=== PATIENT | female | born 1970 | race Caucasian/White ===

== ENCOUNTER → 2020-02-18 12:57 | Outpatient (CLI) | payer OTHER, SELFPAY ==
--- NOTE | ~2020-02-18 | MM_ITS ---
EXAMINATION: MM screening [facility] BI w odilia HISTORY: Screening mammogram TECHNIQUE: Craniocaudal and mediolateral oblique 3-D tomosynthesis images were obtained and synthetic 2-D images were generated. CAD analysis was submitted and interpreted. COMPARISON: 12/04/2018, 11/13/2017, 11/17/2016, 11/10/2016 BREAST PARENCHYMAL COMPOSITION: The breasts are heterogeneously dense, which may obscure small masses . FINDINGS: There is no evidence of suspicious mass, calcification, or architectural distortion to sugg est malignancy in either breast. There has been no suspicious interval change. IMPRESSION: 1. No mammographic evidence of malignancy. 2. Recommend routine screening mammography in one year. BI-RADS Category 1: Negative Reviewed, dictated and finalized at location A. [employer]
== END ==
PROVIDERS: PCP Family Medicine; Visit Provider Family Medicine
DX: Z12.31 Encounter for screening mammogram for malignant neoplasm of breast (principal)
CPT/HCPCS: 77063; 77067

== ENCOUNTER → 2021-04-11 14:01 | Outpatient (CLI) | payer OTHER, SELFPAY ==
--- NOTE | ~2021-04-11 | MM_ITS ---
EXAMINATION: MM screening [facility] BI w odilia HISTORY: Screening TECHNIQUE: Craniocaudal and mediolateral oblique 3-D tomosynthesis images were obtained and synthetic 2-D images were generated. CAD analysis was submitted and interpreted. COMPARISON: Comparison to multiple prior studies sequentially, with oldest reviewed study dated 10/13. BREAST PARENCHYMAL COMPOSITION: The breasts are heterogenously dense, which may obscure small masses FINDINGS: There are developing nodular asymmetries in the outer aspect of the right breast on CC view . The left breast is stable without evidence for malignancy. IMPRESSION: 1. Developing nodular asymmetries of the right breast. 2. Additional spot compression and mediolateral views with possible follow-up breast ultrasound recom mended. BI-RADS Category 0: Incomplete: Needs additional imaging evaluation. Reviewed, dictated and finalized at location A. E IN THEATER ATTENDANT IMPRESSION: 1. Developing nodular asymmetries of the right breast. 2. Additional spot compression and mediolateral views with possible follow-up b reast ultrasound recommended. BI-RADS Category 0: Incomplete: Needs additional imaging evaluation.
== END ==
PROVIDERS: PCP Family Medicine; Visit Provider Family Medicine
DX: Z12.31 Encounter for screening mammogram for malignant neoplasm of breast (principal); R92.8 Other abnormal and inconclusive findings on diagnostic imaging of breast
CPT/HCPCS: 77063; 77067

== ENCOUNTER 2021-04-27 12:55 | Outpatient (CLI) | payer OTHER, SELFPAY ==
--- NOTE | ~2021-04-27 | MMUS_ITS ---
EXAMINATION: MM diagnostic [facility] RT w odilia, US breast RT limited HISTORY: Developing nodular asymmetries of right breast reported on April 11, 2021 screening mammog gadiel TECHNIQUE: ML full-field and spot ML, MLO and CC 3-D tomosynthesis images of right breast were perfor med and synthetic 2-D images were generated. CAD analysis was submitted and interpreted. High resolut ion upper outer and lower-outer quadrant right breast ultrasound was performed. COMPARISON: April 11, 2021, February 18, 2020, December 04, 2018 bilateral screening mammogram examin ations FINDINGS: MAMMOGRAPHIC FINDINGS: No suspicious mass, architectural distortion, malignant calcification, skin thickening or retraction or significant new or developing density is evident since 12/04/2018. ULTRASOUND: There is minimal focal shadowing without apparent discrete lesion at 8:00. There is a right axillary 8.3 x 20.7 x 12.5 mm circumscribed soft tissue structure with central fatty tissue, consistent with lymph node. The cortex appears uniform density and thickness. No suspicious mass or shadowing is detected otherwise. IMPRESSION: 1. Probably benign minimal focal shadowing without discrete mass at 8:00 and probable benign right ax illary lymph node 2. 6 month diagnostic right mammogram and right breast and right axillary ultrasound follow-up are re commended BI-RADS category 3, probably benign findings. Reviewed, dictated and finalized at location A. SPACE PROJECT MANAGER IMPRESSION: 1. Probably benign minimal focal shadowing without discrete mass at 8:00 and pr obable benign right axillary lymph node 2. 6 month diagnostic right mammogram and right breast and right axillary ultra sound follow-up are recommended BI-RADS category 3, probably benign findings.
== END 2021-04-27 12:56 | disposition home or self-care (01) ==
LOC: ANHIMG 12:57
PROVIDERS: PCP Family Medicine; Visit Provider Family Medicine
DX: R92.8 Other abnormal and inconclusive findings on diagnostic imaging of breast (principal)
CPT/HCPCS: 76642; 77061; 77065; G0279

== ENCOUNTER 2021-05-09 00:29 | Day surgery (SDC) | payer OTHER, SELFPAY ==
[2021-04-29 11:13] VITALS: BMI 42.3
--- NOTE | 2021-05-08 12:39 | WPDANESEPP ---
Anes - Eval Pre Procedure Procedure: Operation Date: 05/09/21 10:30 Proposed Procedures p Screening Colonoscopy - Addi Ozuna MD Date/Time: 05/08/21 12:39 Pre Op Diagnosis: neoplasm screening Patient Data Age: 50 Gender: F Height: 1.61 m Weight: 110 kg Allergies Allergy/AdvReac Type Severity Reaction Status Date / Time bee venom protein (honey bee) Allergy Severe Swelling Verified 04/29/21 11:18 [bees] of Lip/Tongue/Throat latex Allergy Severe Swelling Verified 04/29/21 11:16 of Lip/Tongue/Throat raspberry Allergy Severe throat Verified 04/29/21 11:16 close adhesive tape Allergy Intermediate Hives Verified 04/29/21 11:19 fluoxetine Allergy Mild rash Verified 04/29/21 11:16 furosemide Allergy Mild rash Verified 04/29/21 11:16 Home Medications Medication Instructions Recorded Confirmed Type aspirin 81 mg chewable tablet 81 mg PO DAILY 12/30/20 04/29/21 History cetirizine 10 mg tablet 10 mg PO DAILY 12/30/20 04/29/21 History cyclobenzaprine 5 mg tablet 5 mg PO TID PRN #30 tablet 12/30/20 04/29/21 Rx hydroxyzine HCl 25 mg tablet 25 mg PO TID PRN #60 tablet 12/30/20 04/29/21 Rx triamterene 37.5 1 tablet PO QAM #90 tablet 01/03/21 04/29/21 Rx mg-hydrochlorothiazide 25 mg tablet albuterol sulfate 90 mcg/actuation See Rx Instructions .ROUTE 04/01/21 04/29/21 Rx aerosol inhaler .COMPLEX #8.5 g sod picosulf 10 mg-magnes 3.5 160 ml PO QPM #320 ml 04/13/21 Rx gram-citric 12 gram/160 mL oral solution cholecalciferol (vitamin D3) 125 mcg PO DAILY 04/29/21 04/29/21 History [Vitamin D3] cyanocobalamin (vitamin B-12) 2,500 mcg SUBLINGUAL DAILY 04/29/21 04/29/21 History [Vitamin B-12] rosuvastatin 5 mg PO DAILY 04/29/21 04/29/21 History topiramate 25 mg PO BID 04/29/21 04/29/21 History zinc gluconate [Zinc-50] 50 mg PO DAILY 04/29/21 04/29/21 History naproxen 500 mg tablet 500 mg PO BID PRN #180 tablet 05/04/21 Rx : patient denies HCG: negative Patient hx anesthesia problems: none Family hx anesthesia problems: none Results Review: All pre-operative results and documents have been reviewed as part of the pre-operative evaluation. [facility] Past Medical History Medical History Benign essential HTN BMI 39.0-39.9,adult Migraines Obesity (BMI 30-39.9) Family History Family History Father Family history of chronic obstructive pulmonary disease Family history of diabetes mellitus in first degree relative Family history of heart disease in male family member before age 55 Heart disease RAFY (obstructive sleep apnea) Mother Family history of chronic obstructive pulmonary disease Family history of diabetes mellitus in first degree relative Family history of dementia Family history of heart disease in male family member before age 55 Heart disease Hypertension Cerebrovascular accident Acute myocardial infarction Sibling Carcinoma of colon age 30s Diabetes mellitus Social History Social History Social History: Smoking status: Never smoker Second hand tobacco smoke exposure: No Alcohol intake: current Substance use: never Substance use type: does not use Gender identity (if verbalized by the patient): Female Sexual Orientation (if Verbalized by the Patient): Straight or Heterosexual Spiritual care concerns: No Exam Day of Procedure 05/08/21 12:39
[2021-05-09 09:25] VITALS: BP 178/90; PULSE 63; RESP 20; TEMP 36.9; O2SAT 98; BMI 39.4
[2021-05-09] MEDS: LACTATED RINGERS 1,000 ML 150 ML IV CONT (09:53)
--- NOTE | 2021-05-09 10:02 | WPDANESEFPP ---
Anes - Eval Final PreProcedure Day of Procedure 05/09/21 10:02 Patient weight: obese Heart: regular rate and rhythm Lungs: clear to auscultation and normal air movement Airway: Mallampati scale class II Neurological: alert and oriented Last oral intake: >/= 8 hours ASA classification: II Emergent: no Anesthetic plan: proceed Anesthesia type and monitoring: general GIVS and standard monitoring Results Review: All pre-operative results and documents have been reviewed as part of the pre-operative evaluation. Informed Consent: The patient's anesthetic plan and its attendant risks and benefits were discussed with the patient/family/POA. Questions were solicited and answers provided to the satisfaction of the patient/family/POA.
--- NOTE | 2021-05-09 10:25 | PM.HPGS ---
History of Present Illness History of Present Illness Consent: Risks, benefits, and alternatives have been discussed and questions answered. Patient agrees to proceed with procedure. Chief complaint: neoplasm screening Narrative: Radha Aquino is a 50 year old female with last colonoscopy ~ 12 years ago, brother had colon cancer at 30's Review of Systems Constitutional: Constitutional: Denies headache(s) and Denies weakness Eyes: Eyes: Denies blurry vision ENT: Reports Normal hearing present, Denies headache(s) and Denies neck pain Cardiovascular: Cardiovascular: Denies chest pain and Denies dyspnea Respiratory: Respiratory: Denies dyspnea Gastrointestinal: Gastrointestinal: Reports no additional gastrointestinal complaints Genitourinary: Genitourinary: Denies dysuria Musculoskeletal: Musculoskeletal: Denies neck pain Integumentary/Breasts: Skin/Breast: Denies dry skin Neurologic: Reports Normal hearing present, Denies headache(s) and Denies weakness Psychiatric: Psychiatric: Denies anxiety Endocrine: Endocrine: Denies change in body appearance Hematologic/Lymphatic: Hematologic/Lymphatic: Denies easy bleeding Allergic/Immunologic: Allergic/Immunologic: Denies urticaria PMFSH Past Medical History Medical History (Updated 05/09/21 @ 10:25 by Addi Ozuna MD) Benign essential HTN BMI 39.0-39.9,adult Family history of colon cancer Migraines Obesity (BMI 30-39.9) Family History Family History Father Family history of chronic obstructive pulmonary disease Family history of diabetes mellitus in first degree relative Family history of heart disease in male family member before age 55 Heart disease RAFY (obstructive sleep apnea) Mother Family history of chronic obstructive pulmonary disease Family history of diabetes mellitus in first degree relative Family history of dementia Family history of heart disease in male family member before age 55 Heart disease Hypertension Cerebrovascular accident Acute myocardial infarction Sibling Carcinoma of colon age 30s Diabetes mellitus Social History Social History Social History: Smoking status: Never smoker Second hand tobacco smoke exposure: No Alcohol intake: current Substance use: never Substance use type: does not use Living arrangements: with family Gender identity (if verbalized by the patient): Female Sexual Orientation (if Verbalized by the Patient): Straight or Heterosexual Spiritual care concerns: No Meds Home Medications and Allergies Home Medications Medication Instructions Recorded Confirmed Type aspirin 81 mg chewable tablet 81 mg PO DAILY 12/30/20 05/09/21 History cetirizine 10 mg tablet 10 mg PO DAILY 12/30/20 05/09/21 History cyclobenzaprine 5 mg tablet 5 mg PO TID PRN #30 tablet 12/30/20 05/09/21 Rx hydroxyzine HCl 25 mg tablet 25 mg PO TID PRN #60 tablet 12/30/20 05/09/21 Rx triamterene 37.5 1 tablet PO QAM #90 tablet 01/03/21 05/09/21 Rx mg-hydrochlorothiazide 25 mg tablet albuterol sulfate 90 mcg/actuation See Rx Instructions .ROUTE 04/01/21 05/09/21 Rx aerosol inhaler .COMPLEX #8.5 g sod picosulf 10 mg-magnes 3.5 160 ml PO QPM #320 ml 04/13/21 05/09/21 Rx gram-citric 12 gram/160 mL oral solution cholecalciferol (vitamin D3) 125 mcg PO DAILY 04/29/21 05/09/21 History [Vitamin D3] cyanocobalamin (vitamin B-12) 2,500 mcg SUBLINGUAL DAILY 04/29/21 05/09/21 History [Vitamin B-12] rosuvastatin 5 mg PO DAILY 04/29/21 05/09/21 History topiramate 25 mg PO BID 04/29/21 05/09/21 History zinc gluconate [Zinc-50] 50 mg PO DAILY 04/29/21 05/09/21 History naproxen 500 mg tablet 500 mg PO BID PRN #180 tablet 05/04/21 05/09/21 Rx Allergies Allergy/AdvReac Type Severity Reaction Status Date / Time bee venom protein (honey bee) Allergy Sever
[2021-05-09 10:44] VITALS: BP 112/70; PULSE 57; O2SAT 98
[2021-05-09 10:54] VITALS: BP 116/76; PULSE 60; O2SAT 98
[2021-05-09 11:02] VITALS: BP 120/75; PULSE 62; O2SAT 99
== END 2021-05-09 11:10 | disposition home or self-care (01) ==
PROVIDERS: PCP Family Medicine; Visit Provider Internal Medicine Gastroenterology
PROC: 0DJD8ZZ Inspection of Lower Intestinal Tract, Via Natural or Artificial Opening Endoscopic (ICD-10-PCS; CPT 45378; principal; 2021-05-09 10:30)
DX: Z12.11 Encounter for screening for malignant neoplasm of colon (principal); K62.1 Rectal polyp; Z80.0 Family history of malignant neoplasm of digestive organs; K57.30 Diverticulosis of large intestine without perforation or abscess without bleeding; K64.8 Other hemorrhoids; K64.4 Residual hemorrhoidal skin tags; I10 Essential (primary) hypertension; Z79.82 Long term (current) use of aspirin; Z79.51 Long term (current) use of inhaled steroids; E66.9 Obesity, unspecified; Z68.39 Body mass index [BMI] 39.0-39.9, adult
CPT/HCPCS: 45380; 88305; J2704; J7120

== ENCOUNTER 2021-12-12 13:52 | Outpatient (CLI) | payer OTHER, SELFPAY ==
--- NOTE | 2021-12-16 12:33 | WPDHOLTEREM ---
Holter/Event Monitor Holter/Event Monitor Date of procedure: 12/12/21 Holter/Event Procedure: 48 Hr Holter Monitor Indications: Bradycardia Conclusion: 1. 48 hour holter monitor on 12/12/21. 2. Underlying rhythm is sinus rhythm. HR range 40-104 bpm; average HR 62 bpm. 3. There are 9 premature supraventricular complexes. No supraventricular tachycardia. 4. There are 5 premature ventricular complexes. No ventricular tachycardia. 5. No sinoatrial or atrioventricular blocks. No significant pauses greater than 2 seconds. 6. Patient reports symptoms of headache, chest tightness, lightheadedness, pulse in head which demonstrate sinus rhythm, HR range 58-88 bpm.
== END 2021-12-12 13:53 | disposition home or self-care (01) ==
LOC: ANHCARD 13:54
PROVIDERS: PCP Family Medicine; Visit Provider Family Medicine
DX: U09.9 Post COVID-19 condition, unspecified (principal); R00.1 Bradycardia, unspecified
CPT/HCPCS: 93225; 93226

== ENCOUNTER 2022-10-20 08:41 | Outpatient (CLI) | payer OTHER, SELFPAY ==
--- NOTE | 2022-10-20 08:49 | ECHO_ITS ---
Patient Info Name: Radha Aquino Age: 52 years : 1970 Gender: Female Ht: 63 in Wt: 225 lbs BSA: 2.18 m2 HR: 56 bpm BP: 115 / 81 mmHg Technical Quality: Fair Exam Date: 10/20/2022 8:57 AM Exam Location: [facility] Patient Status: Outpatient Admit Date: 10/20/2022 Staff Ordering Physician: Matthew Larose DO Advertising Sales Agent: Jennifer Richey RDCS Attending Provider: Matthew Larose DO Referring Physician: Thuan ESTEVEZ; Exam Type: CA echo doppler color flow Study Info Indications R53.83 - Other fatigue Complete two-dimensional, color flow and Doppler transthoracic echocardiogram is performed. Summary 1. Complete two-dimensional, color flow and Doppler transthoracic echocardiogram is performed. 2. Left ventricular chamber dimension is normal. 3. Left ventricular systolic function is normal, estimated at 60-65%. 4. The left ventricular diastolic function is grade I diastolic dysfunction. 5. E/e' 8 is minimally elevated. Left Ventricle E/e' 8 is minimally elevated. Left ventricular chamber dimension is normal. Left ventricular systolic function is normal, estimated at 60-65%. The left ventricular diastolic function is grade I diastolic dysfunction. Right Ventricle Right ventricular chamber dimension is normal. Right ventricular systolic function is normal. Left Atria Left atrial chamber dimension is normal. Right Atria Right atrial chamber dimension is normal. Aortic Valve The aortic valve is trileaflet. There is no aortic valve stenosis. There is no aortic valve regurgitation. Pulmonic Valve There is no pulmonic regurgitation. Mitral Valve There is no mitral valve stenosis. There is no mitral valve regurgitation. Tricuspid Valve There is no tricuspid valve regurgitation. Pericardium/Pleural There is no pericardial effusion. Inferior Vena Cava Normal inferior vena cava with >50% collapse upon inspiration consistent with normal right atrial pressure, 5 mmHg. Aorta The aortic root size at the sinus of Valsalva is normal. Tricuspid Valve Name Value Normal Estimated PAP/RSVP RA Pressure 5 mmHg <=5 Report Signatures
== END 2022-10-20 08:42 | disposition home or self-care (01) ==
PROVIDERS: PCP Family Medicine; Visit Provider Internal Medicine Cardiovascular Disease
DX: R53.83 Other fatigue (principal)
CPT/HCPCS: 93306

== ENCOUNTER 2022-11-03 14:41 | Outpatient (CLI) | payer OTHER, SELFPAY ==
--- NOTE | ~2022-11-03 | XR_ITS ---
EXAMINATION: XR shoulder RT min 2V DATE: 11/03/2022 15:05 INDICATION: Right shoulder pain. TECHNIQUE: 4 views of right shoulder were obtained. COMPARISON: None. FINDINGS: Bone alignment is normal. No fracture. There is mild osteoarthritis of glenohumeral joint a nd acromioclavicular joint. IMPRESSION: 1. Mild polyarticular osteoarthritis. Reviewed, dictated and finalized at location E.
== END 2022-11-03 14:42 | disposition home or self-care (01) ==
LOC: ANHIMG 14:44
PROVIDERS: PCP Family Medicine; Visit Provider Physician Assistant
DX: M25.511 Pain in right shoulder (principal); M19.011 Primary osteoarthritis, right shoulder
CPT/HCPCS: 73030

== ENCOUNTER → 2022-11-13 14:59 | Outpatient (CLI) | payer OTHER, SELFPAY ==
--- NOTE | ~2022-11-13 | MR_ITS ---
MRI of the right shoulder Technique: Axial proton-density fat-sat images, coronal proton density fat-sat and T2 fat-sat images, and sagittal T1-weighted and T2 fat-sat images were acquired. Clinical History: Pain Findings: There is mild AC joint degenerative change, with minimal subacromial spur. Coracoclavicular , coracoacromial, and coracohumeral ligaments are intact. There is a 4 mm focal low-grade articular surface partial tear at the distal supraspinatus tendon ins ertion. There is mild supraspinatus and infraspinatus tendinosis. No infraspinatus tear identified. T here is mild to moderate subscapularis tendinosis, without evidence for tear. Tendon of the long head of the biceps is intact. No labral tear identified. Inferior glenohumeral ligament is intact. No significant degenerative change or effusion of the gleno humeral joint. There is minimal fluid in the subacromial/subdeltoid bursa. No muscle atrophy or edema identified. Impression: 4 mm focal low-grade articular surface partial tear of the distal supraspinatus tendon insertion. Mil d tendinosis, particularly supraspinatus and subscapularis tendons. Mild AC joint degenerative change. Minimal subacromial/subdeltoid bursitis. Reviewed, dictated and finalized at [facility]. Impression: 4 mm focal low-grade articular surface partial tear of the distal supraspinatus tendon insertion. Mild tendinosis, particularly supraspinatus and subscapulari s tendons. Mild AC joint degenerative change. Minimal subacromial/subdeltoid bursitis.
== END ==
PROVIDERS: PCP Family Medicine; Visit Provider Physician Assistant
DX: M19.011 Primary osteoarthritis, right shoulder (principal); M75.51 Bursitis of right shoulder; M24.111 Other articular cartilage disorders, right shoulder
CPT/HCPCS: 73221

== ENCOUNTER 2023-07-20 09:44 | Outpatient (CLI) | payer OTHER, SELFPAY ==
--- NOTE | ~2023-07-20 | US_ITS ---
EXAMINATION: US_VDOPREFBI_US DATE: 07/20/2023 09:40 INDICATION: Localized lower limb edema. TECHNIQUE: Grayscale ultrasound images without and with compression and Doppler ultrasound images of the bilateral lower extremity veins were obtained. COMPARISON: None. FINDINGS: The visualized portions of right common femoral vein, profunda (deep) femoral vein, femoral vein, pop liteal vein, peroneal veins, and posterior tibial veins are patent. Right greater saphenous vein hugo ures 5 mm in the upper thigh, 5 mm in the lower thigh, and 2 mm in the calf. Right greater saphenous vein demonstrates 1.5 seconds reflux in the lower thigh and 7.3 seconds reflux in the calf. Right sma ll saphenous vein measures 2 mm stone in the upper calf and 1 mm in the lower calf. No reflux in righ t small saphenous vein. The visualized portions of left common femoral vein, profunda femoral vein, femoral vein, popliteal v ein, peroneal veins, and posterior tibial veins are patent. Left greater saphenous vein measures 3 mm the upper thigh, 2 mm in the lower thigh, and a 2 mm in the calf without reflux. Left small saphenou s vein measures 2 mm in the upper calf and 2 mm in the lower calf without reflux IMPRESSION: 1. Reflux in right greater saphenous vein. Reviewed, dictated and finalized at location E.
[2023-07-20 10:45] LABS: Basophils Absolute Auto 0.1 K/mm3 (0.0-0.1); Eosinophils Absolute Auto 0.2 K/mm3 (0-0.3); Eosinophils Percent Auto 3.9 % (0-4.4); Hematocrit 45.5 % (37.0-47.0); Hemoglobin 14.7 g/dL (12.0-15.0); Immature Granulocyte Absolute 0.02 K/mm3 (0.00-0.031); Immature Granulocyte Percent A 0.3 % (0-0.5); Lymphocytes Absolute Auto 2.76 K/mm3 (0.9-3.2); Lymphocytes Percent Auto 44.9 % (18.3-44.2); Mean Corpuscular HGB Conc 32.3 g/dl (32-36); Mean Corpuscular Hemoglobin 28.7 pg (26-34); Mean Corpuscular Volume 88.7 fl (80-100); Monocytes Absolute Auto 0.5 K/mm3 (0.1-0.6); Neutrophils Absolute Auto 2.6 K/mm3 (1.3-6.7); Neutrophils Percent Auto 41.9 % (45.5-73.1); Platelet Count Result 294 k/mm3 (150-375); Red Blood Count 5.13 M/mm3 (4.2-5.4); White Blood Count 6.2 K/mm3 (4.5-10.0)
[2023-07-20 10:58] LABS: Alanine Aminotransferase 28 U/L (6-35); Albumin Level 4.7 g/dL (3.5-5.1); Alkaline Phosphatase 105 U/L (38-126); Anion Gap 6 mmol/L (4-12); Aspartate Amino Transferase 36 U/L (14-36); Bilirubin,Total 0.5 mg/dL (0.2-1.3); Blood Urea Nitrogen 17 mg/dL (7-17); Calcium 9.6 mg/dL (8.4-10.2); Carbon Dioxide 31 mmol/L (22-30); Chloride 102 mmol/L (98-107); Cholesterol 172 mg/dL (0-200); Estimated Glomerular Filt Rate > 60; Glucose 115 mg/dL (65-110); HDL Direct 44 mg/dL; Sodium 139 mmol/L (137-145); Triglycerides 235 mg/dL (<150)
[2023-07-20 11:08] LABS: LDL Cholesterol Direct 107 mg/dL
[2023-07-20 11:13] LABS: Hemoglobin A1C 6.6 % (<5.7)
[2023-07-20 11:35] LABS: Free T4 Free Thyroxine 1.06 ng/mL (0.78-2.19)
== END 2023-07-20 09:45 | disposition home or self-care (01) ==
PROVIDERS: PCP Family Medicine; Visit Provider Physician Assistant
DX: E78.5 Hyperlipidemia, unspecified (principal); E11.9 Type 2 diabetes mellitus without complications; I10 Essential (primary) hypertension; R53.83 Other fatigue; R60.0 Localized edema
CPT/HCPCS: 36415; 80053; 80061; 83036; 84439; 84443; 85025; 93970

== ENCOUNTER 2023-11-26 07:42 | Outpatient (CLI) | payer OTHER, SELFPAY ==
--- NOTE | ~2023-11-26 | NM_ITS ---
EXAMINATION: NM sabi stress w perfusion DATE: 11/26/2023 12:49 INDICATION: Encounter for preprocedural cardiovascular examination. Diastolic dysfunction. TECHNIQUE: Rest images were obtained following intravenous administration of 11.9 mCi Tc99m tetrofosm in (Myoview). The patient was infused intravenously with Lexiscan (regadenoson). Then, 31.2 mCi Tc99m tetrofosmin (Myoview) was administered intravenously, and stress images were obtained. Data was reynaldo nstructed into short axis and horizontal and vertical long axis SPECT images. Gated SPECT images were also obtained. COMPARISON: None. FINDINGS: There is no definite reversible or fixed perfusion abnormality to suggest ischemia or infar ction. There is no segmental wall motion abnormality. Left ventricular ejection fraction measures > 70%. IMPRESSION: 1. No definite ischemia or infarct. 2. Normal left ventricular ejection fraction measuring >70%. Reviewed, dictated and finalized at location A.
--- NOTE | 2023-11-26 07:48 | EST_ITS ---
Patient Info Name: Radha Aquino Age: 53 years : 1970 Gender: Female Ht: 63 in Wt: 224 lbs BSA: 2.18 m2 HR: 63 bpm BP: 136 / 83 mmHg Exam Date: 11/26/2023 9:04 AM Exam Location: Echo Lab Patient Status: Outpatient Admit Date: 11/26/2023 Staff Ordering Physician: Matthew Larose DO Attending Provider: Matthew Larose DO Exercise Technologist: Krissy Sterling RDCS Exercise Physician: Matthew Larose DO Exam Type: CA stress sabi w NM Study Info A regadenoson stress test was performed. Summary 1. 1. Negative lexiscan stress test for ischemic ST changes by ECG criteria. 2. 2. Stable hemodynamics throughout the test. 3. 3. Nuclear scan to follow and will be reported separatetly. Please correlate with it. 4. 4. Patient informed of the above results. Protocol: Lexiscan Stress ECG Details Stage: REST Duration (min): 3 min : 19 sec HR (bpm): 42 SBP (mmHg): 136 DBP (mmHg): 83 Stage: REST Duration (min): 10 min : 50 sec HR (bpm): 48 SBP (mmHg): 136 DBP (mmHg): 83 Stage: STAGE 1 Duration (min): 1 min : 0 sec HR (bpm): 80 SBP (mmHg): 110 DBP (mmHg): 69 Stage: RECOVERY Duration (min): 1 min : 0 sec HR (bpm): 73 SBP (mmHg): 110 DBP (mmHg): 69 Stage: RECOVERY Duration (min): 2 min : 0 sec HR (bpm): 66 SBP (mmHg): 110 DBP (mmHg): 69 Stage: RECOVERY Duration (min): 3 min : 0 sec HR (bpm): 65 SBP (mmHg): 133 DBP (mmHg): 72 Stage: RECOVERY Duration (min): 3 min : 3 sec HR (bpm): 65 SBP (mmHg): 133 DBP (mmHg): 72 Rest HR: 48 bpm Peak HR: 80 bpm Rest Sys BP: 136 mmHg Peak Sys BP: 133 mmHg Max Pred HR: 166 bpm % Max Pred HR: 48 % Target HR: 141 bpm Max RPP: 10,640 bpm*mmHg Termination Reason: Completed protocol Cardiac Symptoms: Shortness of breath Total Time: 1 min : 0 sec Rest Eli BP: 83 mmHg Peak Eli BP: 72 mmHg Total Dose: 0.4 mg Resting ECG Sinus bradycardia. Stress ECG No ST changes. Arrhythmias None. Report Signatures
== END 2023-11-26 07:43 | disposition home or self-care (01) ==
PROVIDERS: PCP Family Medicine; Visit Provider Internal Medicine Cardiovascular Disease
DX: Z01.810 Encounter for preprocedural cardiovascular examination (principal)
CPT/HCPCS: 78452; 93017; A9502; J2785

== ENCOUNTER 2025-02-17 10:46 | Outpatient (CLI) | payer OTHER, SELFPAY ==
--- NOTE | ~2025-02-17 | XR_ITS ---
EXAMINATION: XR shoulder LT min 2V, 02/17/2025 11:20 [employer] HISTORY: M25.512 - Pain in left shoulder, LIMITED ROM COMPARISON: No comparisons available. Findings: No acute fracture or malalignment. No significant degenerative changes. Soft tissues unremarkable. Impression: No acute fracture or malalignment. Reviewed, dictated and finalized at location P. [employer] Impression: No acute fracture or malalignment.
--- OUTSIDE RECORDS SUMMARY | 2025-02-17 12:55 | XMS_ITS | Clinical Summary ---
Author Organization [facility] Address [address] [place] [address] Care Team Providers Care Engine Specialist Name Role Phone Maya Martínez MD Primary Care Provider Allergies Active Allergy Reactions Criticality Noted Date Comments Latex Anaphylaxis High 07/11/2021 Raspberry Edema Reaction: EDEMA, Medications dulaglutide (TRULICITY) 1.5 mg/0.5 mL pen injector Inject 1.5 mg under the skin every 7 days Active naproxen (NAPROSYN) 500 mg tablet Take 500 mg by mouth 2 (two) times a day with meals Active rosuvastatin (CRESTOR) 5 mg tablet Take 5 mg by mouth daily Active topiramate (TOPAMAX) 25 mg capsule Take 25 mg by mouth 2 (two) times a day Active triamterene-hyd roCHLOROthiazid e (triamterene-hy droCHLOROthiazi de) 37.5-25 mg per tablet/capsule Take 1 tablet/capsul e by mouth daily Active albuterol HFA (PROVENTIL HFA,VENTOLIN HFA,PROAIR HFA) 90 mcg/actuation inhaler Inhale 2 puffs every 4 (four) hours as needed for wheezing 1 each 09/05/2022 Active benzonatate (TESSALON) 100 mg capsuleIndicati ons:Cough Take 1 capsule (100 mg total) by mouth 3 (three) times a day as needed for cough 15 capsule 09/05/2022 Active Surgical History Surgery Date Site/Laterality Comments ENDOMETRIAL ABLATION SECTION ABLATION TONSILLECTOMY Medical History Medical History Date Comments Diabetes mellitus Migraine Endometriosis Hyperlipidemia Social History Tobacco Use Types Packs/Day Years Used Date Smoking Tobacco: Never Alcohol Use Standard Drinks/Week Comments Yes 0 (1 standard drink = 0.6 oz pur e alcohol) rarely Personal Safety Answer Date Recorded Getting School Help Needed Not on file 09/10 Comments No Sex and Gender Information Value Date Recorded Sex Assigned at Not on file Legal Sex Female 3:39 AM CDT Gender Identity Not on file Sexual Orientation Not on file Last Filed Vital Signs Vital Sign Reading Time Taken Comments Blood Pressure 145/78 09/05/2022 8:30 AM CDT Pulse 52 09/05/2022 8:30 AM CDT Temperature 36.7 C (98.1 F) 09/05/2022 3:20 AM CDT Respiratory Rate 18 09/05/2022 3:20 AM CDT Oxygen Saturation 97% 09/05/2022 8:30 AM CDT Inhaled Oxygen Concentration - - Weight 102.5 kg (226 lb) 07/11/2021 7:32 PM CDT Height 161.3 cm (5' 3.5) 07/11/2021 7:32 PM CDT Body Mass Index 39.41 07/11/2021 7:32 PM CDT Plan of Treatment Health Maintenance Due Date Last Done Comments Breast Cancer Screening-Mammogram 1970 Cervical Cancer Screening 1970 Colon Cancer Screening-Colonoscopy 1970 Depression Screening 1970 Hepatitis C Screening 1970 DTaP/Tdap/Td Vaccine (1 - Tdap) 1980 Hepatitis B Screening 08/26/1987 Regular Well Visit/Exam 18-64 08/26/1987 Zoster Vaccine (1 of 2) 08/26/2019 Covid-19 Vaccine (3 - 2024-2 6 season) 2024 06/08/2020, 05/16/2020 Influenza Vaccine (#1) 2024 Pneumococcal vaccine <65 Aged Out No longer eligible based on patient's age to complete this topic Insurance [facility] Address: [address] [address] [facility] Address: [address] [address] Care Teams Engine Specialist Relationship Specialty Start Date End Date Maya Martínez MD [address] [facility] [address] [place] [address] PCP - General 05/12/16
--- OUTSIDE RECORDS SUMMARY | 2025-02-17 12:55 | XMS_ITS | Clinical Summary ---
Author Organization [facility] Address [address] [place] [address] Care Team Providers Care Photocomposing Machine Operator Name Role Phone No, Pcp AIR LAUNCH WEAPONS TECHNICIAN Primary Care Provider Unavailabl e Social History Tobacco Use Types Packs/Day Years Used Date Smoking Tobacco: Never Assessed Comments Unknown Sex and Gender Information Value Date Recorded Sex Assigned at Not on file Legal Sex Female 7:12 PM EST Gender Identity Not on file Sexual Orientation Not on file Plan of Treatment Not on file Medical Devices Not on file Insurance [facility] Care Teams Photocomposing Machine Operator Relationship Specialty Start Date End Date No, Pcp, AIR LAUNCH WEAPONS TECHNICIAN N/A Do not use PCP - General Family Medicine 04/19/20
--- OUTSIDE RECORDS SUMMARY | 2025-02-17 12:55 | XMS_ITS | Clinical Summary ---
Author Organization [facility] Address [address] [facility] [place] [address] Care Team Providers Care Financial Institution Treasurer Name Role Phone Maya Martínez MD Primary Care Provider + Source Comments [facility],non-owned Affiliates and Associated Physician Practices is amultiple site organization consisting of ambulatory clinics and hospital sitesin [place], [place], [place] and [place]. This disclosure is being madepursuant to the Care Everywhere program and may not contain all information available regarding this patient. Last updated 17.[facility] [place] Allergies Active Allergy Reactions Criticality Noted Date Comments Adhesive Sensitivity Itching,Rash Medium 04/06/2022 Bee Anaphylaxis,Urticari a,Itching,Ra sh,Shortness of Breath,Swelling High 04/06/2022 Gluten Meal GI Discomfort,Diarrhea,Swelling Low 04/2022 Beta-Galactosidase 06/24/2012 Latex Anaphylaxis,Urticari a,Itching,Ra sh,Shortness of Breath,Swelling High 01/18/2018 Raspberry Flavor Anaphylaxis High 09/20/2023 Wheat Diarrhea,Fever,GI Discomfort,Headache,Nausea and/or Vomiting,Rash,Swelling Medium 09/20/2023 Medications * Be aware that medications may not be up to date on this document. Alwaysverify current medications with the patient. Albuterol Sulfate (VENTOLIN HFA IN) Inhale 1 puff by mouth every 6 hours as needed (shortness of breath) Active cetirizine (ZyrTEC) 10 MG tablet Take 1 (one) tablet by mouth once daily Active omeprazole (PriLOSEC) 20 MG capsule Take 1 (one) capsule by mouth once daily 30 capsule 5 06/23/2024 Active omeprazole (PriLOSEC) 20 MG capsule Take 1 (one) capsule by mouth once daily 90 capsule 1 12/10/2024 Active Active Problems Problem Noted Date Diagnosed Date S/P gastric bypass 12/25/2023 Lactose intolerance 08/08/2012 Sinus bradycardia 07/23/2012 GERD (gastroesophageal reflux disease) 3 Obesity (BMI 30.0-34.9) Encounters Date Type Department Care Team Description 02/17/2025 Orders Only [facility] Health Weight Management Services [address] [place] [address], [address] [address] Pallavi Cunningham APRN-CNP Elevated LFTs 02/16/2025 Results Follow-Up [facility] Weight Management Services [address] [place] [address] Pallavi Cunningham APRN-CNP 01/26/2025 1:00 PM ACCOUNTS RECEIVABLE EXECUTIVE Video Visit [facility] Weight Management Services [address] [place] [address], [address] [phone] Jabier Rey MD Bariatric surgery status ; Intestinal malabsorption, unspecified type (HCC); Hypoglycemia 12/10/2024 Refill [facility] Weight Management Services [address] [place] [address], [address] [address] Pallavi Cunningham APRN-CNP MEDICATION REFILL 12/03/2024 Telephone [facility] Weight Management Services [address] [place] [address], [address] [address] Pallavi Cunningham APRN-CNP Appointment from Last 3 Months Social History Tobacco Use Types Packs/Day Years Used Date Smoking Tobacco: Never Smokeless Tobacco: Never Tobacco Cessation:Counseling Given: No Alcohol Use Standard Drinks/Week Comments Not Currently 0 (1 standard drink = 0.6 oz pur e alcohol) holidays AUDIT-C Answer Date Recorded Q1: How often do you have a drink containing alcohol? Never 12/25/2023 Q2: How many drinks containi ng alcohol do you have on a typical day when you are drinking? Patient does not drink Q3: How often do you have si x or more drinks on one occasion? Never 12/25/2023 Overall Financial Resource Strain (CARDIA) Answe r Date Recorded How hard is it for you to pa y for the very basics like food, housing, medical care, and heating? Not hard at all 12/25/2023 [facility] - Occupational Stress Questionnaire Answer Date Recorded Do you feel stress - tense, restless, nervous, or anxious, or unable to sleep at night because your mind is troubled all the time - these days? Not at all 12/25/2023 Hunger Vital Sign Answer Date Recorded Within the past 12 months, y ou worried that your food would run out before you got the money to buy more. Never true 12/25/19 24 Within the past 12 months, t he food you bought just didn't last and you didn't have money to get more. Never true 12/25/2023 PRAPARE - Transportation Answer Date Re corded In the past 12 months, has l ack of transportation kept you from medical appointments or from getting medications? No 12/04 In the past 12 months, has l ack of transportation kept you from meetings, work, or from getting things needed for daily living? No 12/25/2023 Housing Stability Vital Sign Answer Jose Alejandro e Recorded In the last 12 months, was t here a time when you were not able to pay the mortgage or rent on time? No 12/25/2023 In the past 12 months, how m any times have you moved where you were living? 1 12/25/2023 At any time in the past 12 m [facility] were you homeless or living in a mcc (including now)? No 12/25/2023 Comments No Sex and Gender Information Value Date Recorded Sex Assigned at Not on file Legal Sex Female 12:14 PM CDT Gender Identity Not on file Sexual Orientation Not on file Last Filed Vital Signs Vital Sign Reading Time Taken Comments Blood Pressure 114/74 06/23/2024 1:41 PM CDT Pulse 50 06/23/2024 1:41 PM CDT Temperature 36.2 C (97.1 F) 06/23/2024 1:41 PM CDT Respiratory Rate 18 12/30/2023 2:01 PM CDT Oxygen Saturation 99% 06/23/2024 1:4 1 PM CDT Inhaled Oxygen Concentration - - Weight 74.4 kg (164 lb) 09/16/2024 7:27 AM CDT previous weight Height 160 cm (5' 3) 09/16/2024 7:27 AM CDT Body Mass Index 29.05 09/16/2024 7:27 AM CDT Plan of Treatment Upcoming Encounters Date Type Department Care Team (Late st Contact Info) Description 03/19/2025 7:45 AM ACCOUNTS RECEIVABLE EXECUTIVE Office Visit [facility] - Endocrinology [address], [address] [place] [phone] [place] [address] [address] [facility] [address] [place] [phone] 01/25/2026 1:30 PM ACCOUNTS RECEIVABLE EXECUTIVE Video Visit [facility] Weight Management Services [address], [address] [place] [address] Pallavi Cunningham, CANAL EQUIPMENT MECHANIC-AIR POLLUTION AUDITOR [address] [place] [address] Health Maintenance Due Date Last Done Comments COLOGUARD (AGES 45-75) - COLON CA SCREENING 1969 COLON MONITORING 1969 COLONOSCOPY - COLON CA SCREENING 1969 CT COLONOGRAPHY - COLON CA SCREENING 1969 Colorectal Cancer Screening 1969 FIT - COLON CA SCREENING 1969 FLEX SIG - COLON CA SCREENING 1969 LIPID TESTING 1969 HIV SCREENING 1984 HEPATITIS C SCREENING 08/21/1987 DTAP/TDAP/TD VACCINES (1 - Tdap) 1988 HEPATITIS B VACCINE (1 of 3 - 19+ 3-dose series) 1988 PAP SMEAR 1990 PNEUMOCOCCAL VACCINE 50+ (1 of 1 - PCV) 08/26/2019 ZOSTER VACCINE (1 of 2) 08/26/2019 DEPRESSION SCREENING 03/05/2024 COVID-19 VACCINE (3 - 2024- season) 2024 06/08/2020, 05/16/2020 INFLUENZA VACCINE (#1) 2024 MAMMOGRAM 04/25/2026 04/25/2024, 04/06, 04/17/2023, Additional history exists SCREENING FOR DIABETES 02/05/2028 , 10/21/2024, 07/04/2024, Additional history exists HIB VACCINE Aged Out No longer eligi ble based on patient's age to complete this topic HPV VACCINE Aged Out No longer eligi ble based on patient's age to complete this topic MENINGOCOCCAL (Group B) VACCINE SHARED DECISION-MAKING Aged Out No longer eligible based on patient's age to complete this topic MENINGOCOCCAL GROUPS A/C/Y/W VACCINE Aged Out No longer eligible based on patient's age to complete this topic Procedures Procedure Name Priority Date/Time Associated Diagnosis Comments VITAMIN D 25-HYDROXY Routine 02/04/2025 9:14 AM ACCOUNTS RECEIVABLE EXECUTIVE Intestinal malabsorption, unspecified type (HCC) Bariatric surgery status VITAMIN B12 Routine 02/04/2025 9:14 AM ACCOUNTS RECEIVABLE EXECUTIVE Intestinal malabsorption, unspecified type (HCC) Bariatric surgery status VITAMIN B1 Routine 02/04/2025 9:14 AM ACCOUNTS RECEIVABLE EXECUTIVE Intestinal malabsorption, unspecified type (HCC) Bariatric surgery status VITAMIN A Routine 02/04/2025 9:14 AM ACCOUNTS RECEIVABLE EXECUTIVE Intestinal malabsorption, unspecified type (HCC) Bariatric surgery status PREALBUMIN Routine 02/04/2025 9:14 AM ACCOUNTS RECEIVABLE EXECUTIVE Intestinal malabsorption, unspecified type (HCC) Bariatric surgery status IRON + TIBC PANEL Routine 02/04/2025 9:1 4 AM ACCOUNTS RECEIVABLE EXECUTIVE Intestinal malabsorption, unspecified type (HCC) Bariatric surgery status FERRITIN Routine 02/04/2025 9:14 AM ACCOUNTS RECEIVABLE EXECUTIVE Intestinal malabsorption, unspecified type (HCC) Bariatric surgery status COPPER BLOOD Routine 02/04/2025 9:14 AM ACCOUNTS RECEIVABLE EXECUTIVE Intestinal malabsorption, unspecified type (HCC) Bariatric surgery status COMPREHENSIVE METABOLIC PANEL Routine 02/04/2025 9:14 AM ACCOUNTS RECEIVABLE EXECUTIVE Intestinal malabsorption, unspecified type (HCC) Bariatric surgery status CBC W AUTO DIFFERENTIAL Routine 02/04/2025 9:14 AM ACCOUNTS RECEIVABLE EXECUTIVE Intestinal malabsorption, unspecified type (HCC) Bariatric surgery status ZINC BLOOD Routine 02/04/2025 9:13 AM ACCOUNTS RECEIVABLE EXECUTIVE Intestinal malabsorption, unspecified type (HCC) Bariatric surgery status VITAMIN K1 Routine 02/04/2025 9:13 AM ACCOUNTS RECEIVABLE EXECUTIVE Intestinal malabsorption, unspecified type (HCC) Bariatric surgery status VITAMIN E Routine 02/04/2025 9:13 AM ACCOUNTS RECEIVABLE EXECUTIVE Intestinal malabsorption, unspecified type (HCC) Bariatric surgery status from Last 3 Months Results * VITAMIN A (02/04/2025 9:14 AM ACCOUNTS RECEIVABLE EXECUTIVE) Pathologist [facility] Vitamin A 54.6 20.1 - 62.0 ug/dL [facility] ACCOUNT BILL Comment: Reference intervals for vitamin A determined from [facility] internal studies. Individuals with vitamin A less than 20 ug/dL are considered vitamin A deficient and those with serum concentrations less than 10 ug/dL are considered severely deficient. This test was developed and its performance characteristics determined by [facility]. It has not been cleared or approved by the Food and Drug Administration. Blood BLOOD SPECIMEN / Unknown 02/04/2025 9:14 AM ACCOUNTS RECEIVABLE EXECUTIVE 02/04/2025 Narrative [facility] ACCOUNT BILL - 02/07/2025 2:07 PM ACCOUNTS RECEIVABLE EXECUTIVE Performed at: 01 - [address] [id number] Pipe Bender: Kelley eLe MD, Phone: [phone] us Jabier Rey MD LAB - CHEMISTRY ORDERABLES Fi nal Result [facility] ACCOUNT BILL [address] [place] [address] * VITAMIN B1 (02/04/2025 9:14 AM ACCOUNTS RECEIVABLE EXECUTIVE) [facility] Vitamin B1 Whole Blood 124.1 66.5 - 200.0 nmol/L [facility] ACCOUNT BILL Blood BLOOD SPECIMEN / Unknown 02/04/2025 9:14 AM ACCOUNTS RECEIVABLE EXECUTIVE 02/04/2025 Narrative [facility] ACCOUNT BILL - 02/08/2025 12:06 PM ACCOUNTS RECEIVABLE EXECUTIVE Test(s) 996743-Vmr. B1, Whole Blood was developed and its performance characteristics determined by [facility]. It has not been cleared or approved by the Food and Drug Administration. Performed at: - [facility] [id number] Pipe Bender: Kelley Lee MD, Phone: [phone] Jabier Rey MD LAB - CHEMISTRY ORDERABLES Fi nal Result Performing Organization Address [facility] de Phone Number [facility] ACCOUNT BILL [address] [place] [address] * COPPER BLOOD (02/04/2025 9:14 AM ACCOUNTS RECEIVABLE EXECUTIVE) [facility] Copper 92 80 - 158 ug/dL [facility] ACCOUNT BILL Comment:Detection Limit = 5 Blood BLOOD SPECIMEN / Unknown 02/04/2025 9:14 AM ACCOUNTS RECEIVABLE EXECUTIVE 02/04/2025 Narrative [facility] ACCOUNT BILL - 02/07/2025 2:07 PM ACCOUNTS RECEIVABLE EXECUTIVE Test(s) [id number]-Fwjllf, Serum or Plasma was developed and its performance characteristics determined by [facility]. It has not been cleared or approved by the Food and Drug Administration. Performed at: - [facility] [id number] Pipe Bender: Kelley Lee MD, Phone: [phone] us Jabier Rey MD LAB - CHEMISTRY ORDERABLES Fi nal Result Performing Organization Address [facility] Co de Phone Number [facility] ACCOUNT BILL [address] [place] [address] * VITAMIN D 25-HYDROXY (02/04/2025 9:14 AM ACCOUNTS RECEIVABLE EXECUTIVE) [facility] Vitamin D, 25 Hydroxy 76.8 30.0 - 100.0 ng/mL [facility] ACCOUNT BILL Comment: Vitamin D deficiency has been defined by the [place] of Medicine and an Endocrine Society practice guideline as a level of serum 25-OH vitamin D less than 20 ng/mL (1,2). The Endocrine Society went on to further define vitamin D insufficiency as a level between 21 and 29 ng/mL (2). 1. IOM ([place] of [employer]). 2010. Dietary reference intakes for calcium and D. [place]: The National Academies Press. 2. Garrett MF, Mina MIGUEL, Missy HILLS, et al. Evaluation, treatment, and prevention of vitamin D deficiency: an Endocrine Society clinical practice guideline. JCEM. 2010; 96(7):1911-30. Blood BLOOD SPECIMEN / Unknown 02/04/2025 9:14 AM ACCOUNTS RECEIVABLE EXECUTIVE 02/04/2025 Narrative [facility] ACCOUNT BILL - 02/05/2025 4:06 AM ACCOUNTS RECEIVABLE EXECUTIVE Performed at: [address] [id number] Pipe Bender: Hossein Webb PhD, Phone: [phone] us Jabier Rey MD LAB - CHEMISTRY ORDERABLES Fi nal Result [facility] ACCOUNT BILL [address] [place] [address] * CBC WITH DIFFERENTIAL (02/04/2025 9:14 AM ACCOUNTS RECEIVABLE EXECUTIVE) WBC 4.8 3.4 - 10.8 x10E3/uL [facility] ACCOUNT BILL RBC 4.65 3.77 - 5.28 x10E6/uL [facility] ACCOUNT BILL Hemoglobin 13.8 11.1 - 15.9 g/dL [facility] ACCOUNT BILL Hematocrit 42.0 34.0 - 46.6 % [facility] ACCOUNT BILL MCV 90 79 - 97 fL [facility] ACCOUNT BILL MCH 29.7 26.6 - 33.0 pg [facility] ACCOUNT BILL MCHC 32.9 31.5 - 35.7 g/dL [facility] ACCOUNT BILL RDW 13.1 11.7 - 15.4 % [facility] ACCOUNT BILL Platelet Count 227 150 - 450 x10E3/uL [facility] ACCOUNT BILL Granulocytes % 47 Not Estab. % [facility] ACCOUNT BILL Lymphocytes % 40 Not Estab. % [facility] ACCOUNT BILL Monocytes % 8 Not Estab. % [facility] ACCOUNT BILL Eosinophils % 4 Not Estab. % [facility] ACCOUNT BILL Basophils % 1 Not Estab. % [facility] ACCOUNT BILL Granulocytes Absolute 2.3 1.4 - 7.0 x10E3/uL [facility] ACCOUNT BILL Lymphocytes Absolute 1.9 0.7 - 3.1 x10E3/uL [facility] ACCOUNT BILL Monocytes Absolute 0.4 0.1 - 0.9 x10E3/uL [facility] ACCOUNT BILL Eosinophils Absolute 0.2 0.0 - 0.4 x10E3/uL [facility] ACCOUNT BILL Basophils Absolute 0.1 0.0 - 0.2 x10E3/uL [facility] ACCOUNT BILL Immature Granulocytes 0 Not Estab. % [facility] ACCOUNT BILL Immature Granulocytes Absolute 0.0 0.0 - 0.1 x10E3/uL [facility] ACCOUNT BILL Blood BLOOD SPECIMEN / Unknown 02/04/2025 9:14 AM ACCOUNTS RECEIVABLE EXECUTIVE 02/04/2025 Narrative [facility] ACCOUNT BILL - 02/05/2025 6:07 AM ACCOUNTS RECEIVABLE EXECUTIVE Performed at: 01 - [facility] [id number] Pipe Bender: Hossein Webb PhD, Phone: [phone] us Jabier Rey MD LAB - HEMATOLOGY ORDERABLES F inal Result [facility] ACCOUNT BILL [address] [place] [address] * (ABNORMAL) COMPREHENSIVE METABOLIC PANEL (02/04/2025 9:14 AM ACCOUNTS RECEIVABLE EXECUTIVE) Glucose 86 70 - 99 mg/dL [facility] ACCOUNT BILL BUN 23 6 - 24 mg/dL [facility] ACCOUNT BILL Creatinine 0.91 0.57 - 1.00 mg/dL [facility] ACCOUNT BILL eGFR by CKD-EPI 75 >59 mL/min/1.7 3 [facility] ACCOUNT BILL BUN/Creatinine Ratio 25(H) 9 - 23 [facility] ACCOUNT BILL Sodium 143 134 - 144 mmol/L [facility] ACCOUNT BILL Potassium 4.4 3.5 - 5.2 mmol/L [facility] ACCOUNT BILL Chloride 103 96 - 106 mmol/L [facility] ACCOUNT BILL CO2 27 20 - 29 mmol/L [facility] ACCOUNT BILL Calcium 9.8 8.7 - 10.2 mg/dL [facility] ACCOUNT BILL Protein Total 6.4 6.0 - 8.5 g/dL [facility] ACCOUNT BILL Albumin 4.3 3.8 - 4.9 g/dL [facility] ACCOUNT BILL Globulin Total 2.1 1.5 - 4.5 g/dL [facility] ACCOUNT BILL Bilirubin Total 0.5 0.0 - 1.2 mg/dL [facility] ACCOUNT BILL Alkaline Phosphatase 455(H) 49 - 135 IU/L [facility] ACCOUNT BILL AST 78(H) 0 - 40 IU/L [facility] ACCOUNT BILL ALT 97(H) 0 - 32 IU/L [facility] ACCOUNT BILL Blood BLOOD SPECIMEN / Unknown 02/04/2025 9:14 AM ACCOUNTS RECEIVABLE EXECUTIVE 02/04/2025 Narrative [facility] ACCOUNT BILL - 02/05/2025 6:07 AM ACCOUNTS RECEIVABLE EXECUTIVE Performed at: - [facility] [id number] Pipe Bender: Hossein Webb PhD, Phone: [phone] us Jabier Rey MD LAB - CHEMISTRY ORDERABLES Fi nal Result Performing Organization Address [facility] de Phone Number [facility] ACCOUNT BILL [address] [place] [address] * PREALBUMIN (02/04/2025 9:14 AM ACCOUNTS RECEIVABLE EXECUTIVE) Prealbumin 23 10 - 36 mg/dL [facility] ACCOUNT BILL Blood BLOOD SPECIMEN / Unknown 02/04/2025 9:14 AM ACCOUNTS RECEIVABLE EXECUTIVE 02/04/2025 Narrative [facility] ACCOUNT BILL - 02/05/2025 8:07 AM ACCOUNTS RECEIVABLE EXECUTIVE Performed at: [address] [id number] Pipe Bender: Hossein Webb PhD, Phone: [phone] us Jabier Rey MD LAB - CHEMISTRY ORDERABLES Fi nal Result Performing Organization Address [facility] Co de Phone Number [facility] ACCOUNT BILL [address] [place] [address] * IRON + TIBC PANEL (02/04/2025 9:14 AM ACCOUNTS RECEIVABLE EXECUTIVE) TIBC 311 250 - 450 ug/dL [facility] ACCOUNT BILL UIBC 209 131 - 425 ug/dL [facility] ACCOUNT BILL Iron 102 27 - 159 ug/dL [facility] ACCOUNT BILL Iron Saturation 33 15 - 55 % [facility] ACCOUNT BILL Blood BLOOD SPECIMEN / Unknown 02/04/2025 9:14 AM ACCOUNTS RECEIVABLE EXECUTIVE 02/04/2025 Narrative [facility] ACCOUNT BILL - 02/05/2025 6:07 AM ACCOUNTS RECEIVABLE EXECUTIVE Performed at: - [address] [id number] Pipe Bender: Hossein Webb PhD, Phone: [phone] us Jabier Rey MD LAB - CHEMISTRY ORDERABLES Fi nal Result Performing Organization Address [facility] Co de Phone Number [facility] ACCOUNT BILL [address] [place] [address] * (ABNORMAL) VITAMIN B12 (02/04/2025 9:14 AM ACCOUNTS RECEIVABLE EXECUTIVE) Vitamin B12 >2000(H) 232 - 1245 pg/mL [facility] ACCOUNT BILL Blood BLOOD SPECIMEN / Unknown 02/04/2025 9:14 AM ACCOUNTS RECEIVABLE EXECUTIVE 02/04/2025 Narrative [facility] ACCOUNT BILL - 02/05/2025 6:07 AM ACCOUNTS RECEIVABLE EXECUTIVE Performed at: [address] [id number] Pipe Bender: Hossein Webb PhD, Phone: [phone] us Jabier Rey MD LAB - CHEMISTRY ORDERABLES Fi nal Result Performing Organization Address [facility] Co de Phone Number [facility] ACCOUNT BILL [address] [place] [address] * (ABNORMAL) FERRITIN (02/04/2025 9:14 AM ACCOUNTS RECEIVABLE EXECUTIVE) Ferritin 441(H) 15 - 150 ng/mL [facility] ACCOUNT BILL Blood BLOOD SPECIMEN / Unknown 02/04/2025 9:14 AM ACCOUNTS RECEIVABLE EXECUTIVE 02/04/2025 Narrative [facility] ACCOUNT BILL - 02/05/2025 4:06 AM ACCOUNTS RECEIVABLE EXECUTIVE Performed at: - [address] [id number] Pipe Bender: Hossein Webb PhD, Phone: [phone] Jabier Rey MD LAB - CHEMISTRY ORDERABLES Fi nal Result Performing Organization Address [facility] Phone Number [facility] ACCOUNT BILL [address] [place] [address] * VITAMIN K1 (02/04/2025 9:13 AM ACCOUNTS RECEIVABLE EXECUTIVE) Vitamin K1 0.22 0.10 - 2.20 ng/mL [facility] ACCOUNT BILL Blood BLOOD SPECIMEN / Unknown 02/04/2025 9:13 AM ACCOUNTS RECEIVABLE EXECUTIVE 02/04/2025 Narrative [facility] ACCOUNT BILL - 02/08/2025 3:06 AM ACCOUNTS RECEIVABLE EXECUTIVE Test(s) [id number]-Kdoazgj K1 was developed and its performance characteristics [facility] It has not been cleared or approved by the Food and Drug Administration. Performed at: [address] [id number] Pipe Bender: Kelley Lee MD, Phone: [phone] Jabier Rey MD LAB - CHEMISTRY ORDERABLES Fi nal Result Performing Organization Address [facility] Co de Phone Number [facility] ACCOUNT BILL [address] [place] [address] * ZINC BLOOD (02/04/2025 9:13 AM ACCOUNTS RECEIVABLE EXECUTIVE) Zinc, Plasma or Serum 62 44 - 115 ug/dL [facility] ACCOUNT BILL Comment:Detection Limit = 5 Blood BLOOD SPECIMEN / Unknown 02/04/2025 9:13 AM ACCOUNTS RECEIVABLE EXECUTIVE 02/04/2025 Narrative [facility] ACCOUNT BILL - 02/07/2025 6:06 AM ACCOUNTS RECEIVABLE EXECUTIVE Test(s) [id number]-[id number], Plasma or Serum was developed and its performance characteristics determined by [facility]. It has not been cleared or approved by the Food and Drug Administration. Performed at: - [address] [id number] Pipe Bender: Kelley Lee MD, Phone: [phone] Jabier Rey MD LAB - CHEMISTRY ORDERABLES Fi nal Result Performing Organization Address [facility]/ZIP Co de Phone Number [facility] ACCOUNT BILL [address] [place] [address] * (ABNORMAL) VITAMIN E (02/04/2025 9:13 AM ACCOUNTS RECEIVABLE EXECUTIVE) Vitamin E Alpha Tocopherol 11.0 7.0 - 25.1 mg/L [facility] ACCOUNT BILL Vitamin E Gamma Tocopherol 0.4(L) 0.5 - 5.5 mg/L [facility] ACCOUNT BILL Comment: Reference intervals for alpha and gamma-tocopherol determined from National Health and Nutrition Examination Survey, 3222-5044. Individuals with alpha-tocopherol levels less than 5.0 mg/L are considered vitamin E deficient. Blood BLOOD SPECIMEN / Unknown 02/04/2025 9:13 AM ACCOUNTS RECEIVABLE EXECUTIVE 02/04/2025 Narrative [facility] ACCOUNT BILL - 02/07/2025 2:07 PM ACCOUNTS RECEIVABLE EXECUTIVE Test(s) [id number]-Qvemekc E(Alpha Tocopherol); 272406- Vitamin E(Gamma Tocopherol) was developed and its performance characteristics determined by [facility]. It has not been cleared or approved by the Food and Drug Administration. Performed at: - [address] [id number] Pipe Bender: Kelley Lee MD, Phone: [phone] Jabier Rey MD LAB - CHEMISTRY ORDERABLES Fi nal Result Performing Organization Address [facility]/ZIP Co de Phone Number [facility] ACCOUNT BILL [address] [place] [address] from Last 3 Months Insurance [facility] Advance Directives * Full Code (Latest Code Status on File) Date Activated Date Inactivated Comments 12/25/2023 1:03 PM 12/26/2023 7:32 PM Care Teams Financial Institution Treasurer Relationship Specialty Start Date End Date Maya Martínez MD [address] [place] [address] PCP - General 05/12/21
--- OUTSIDE RECORDS SUMMARY | 2025-02-17 12:55 | XMS_ITS | Encounter Summary ---
Author Organization [facility] Address [address] [facility] [place] [address] Care Team Providers Care Arch Support Technician Name Role Phone Karime Uribe MD Primary Care Provider + Maya Martínez MD Primary Care Provider + Encounter Details Date Type Department Care Team (Late st Contact Info) Description 06/24/2012 [facility] Outpatient Visit [facility] [address] [facility] [place] [address] Magali Ireland MD [address] [place] [phone] Social History Tobacco Use Types Packs/Day Years Used Date Smoking Tobacco: Never Assessed Comments Unknown Sex and Gender Information Value Date Recorded Sex Assigned at Not on file Legal Sex Female 12:14 PM CDT Gender Identity Not on file Sexual Orientation Not on file documented as of this encounter Plan of Treatment Upcoming Encounters Date Type Department Care Team (Late st Contact Info) Description 03/19/2025 7:45 AM SITE OPERATIONS MANAGER Office Visit [facility] - Endocrinology [id number] [place] [address], [address] [address] [place] [address] [address] 01/25/2026 1:30 PM SITE OPERATIONS MANAGER Video Visit [facility] Weight Management Services [address] [facility], [address] [place], [place] [id number] Pallavi Cunningham, ACCOUNT PLANNER-JOINT FILLER [address] [facility] [address] [place] [address] documented as of this encounter Visit Diagnoses Not on filedocumented in this encounter Care Teams Arch Support Technician Relationship Specialty Start Date End Date Karime Uribe MD PCP - General Internal Medicine 06/24/12 05/11/21 Maya Martínez MD [address] [facility] [address] [place] [address] PCP - General 05/12/21 documented as of this encounter
--- OUTSIDE RECORDS SUMMARY | 2025-02-17 12:55 | XMS_ITS | Clinical Summary ---
Author Organization [facility] Care Team Providers Care Electric Needle Specialist Name Role Phone Unavailable Primary Care Provider Unavailabl e Social History Tobacco Use Types Packs/Day Years Used Date Smoking Tobacco: Never Assessed Comments Unknown Sex and Gender Information Value Date Recorded Sex Assigned at Not on file Legal Sex Female 3:56 PM EMERGENCY CARE TECH Gender Identity Not on file Sexual Orientation Not on file Plan of Treatment Health Maintenance Due Date Last Done Comments Hepatitis C Virus (HCV) Screening 1969 TdaP Immunization 1969 Hepatitis B Immunization (1 of 3 - 19+ 3-dose series) 1988 Pap Smear 1990 Cervical Cancer Screening (CCS) 08/26/1999 HPV/Cotest 08/26/1999 Cologuard 2014 Colonoscopy 2014 Colorectal Cancer Screening 2014 Immunochemical Fecal Occult Blood 2014 Pneumococcal Immunization (5 0+ years) (1 of 1 - PCV) 08/26/2019 Zoster Immunization (1 of 2) 08/26/2019 Influenza Immunization (#1) 2024 SARS-COV-2 Immunization ( - season) 2024 Respiratory Syncytial Virus (RSV) Immunization (Adult) (1 - 1-dose 75+ series) 2044 Human Papillomavirus (HPV) Immunization Aged Out No longer eligible b ased on patient's age to complete this topic Meningococcal Immunization (ACWY) Aged Out No longer eligible based on patient's age to complete this topic Rotavirus Immunization Aged Out No lo nger eligible based on patient's age to complete this topic
--- OUTSIDE RECORDS SUMMARY | 2025-02-17 12:55 | XMS_ITS | Encounter Summary ---
Author Organization [facility] Address [address] [facility] [place] [address] Care Team Providers Care Intelligence Operations Specialist Name Role Phone Maya Martínez MD Primary Care Provider + Encounter Details Date Type Department Care Team (Late Contact Info) Description 02/16/2025 Results Follow-Up [facility] Weight Management Services [id number] [place] [address] Pallavi Cunningham, KOSHER DIETARY SERVICE MANAGER-PAINTING CONTRACTOR [address] [address] Social History Tobacco Use Types Packs/Day Years Used Date Smoking Tobacco: Never Smokeless Tobacco: Never Alcohol Use Standard Drinks/Week Comments Not Currently [...] and heating? Not hard at all 12/25/2023 [facility] [place] of Occupat ional Health - Occupational Stress Questionnaire Answer Date Recorded [...] any time in the past 12 m [facility], were you homeless or living in a care home (including now)? No 12/25/2023 Comments No Sex and Gender Information Value Date Recorded Sex Assigned at Not on file Legal Sex Female 12:14 PM CDT Gender Identity Not on file Sexual Orientation Not on file documented as of this encounter Functional Status * Is person deaf or have serious hearing difficulty? Answer Date of Assessment Author No 12/25/2023 7:45 AM Jesse Bryan RN * Is person blind or have serious difficulty seeing? Answer Date of Assessment Author No 12/25/2023 7:45 AM Jesse Bryan RN * Does person have serious difficulty walking/climbing stairs? Answer Date of Assessment Author No 12/25/2023 7:45 AM Jesse Bryan RN * Does person have difficulty dressing/bathing? Answer Date of Assessment Author No 12/25/2023 7:45 AM Jesse Bryan RN * Does person have difficulty doing errands alone? Answer Date of Assessment Author No 12/25/2023 7:45 AM Jesse Bryan RN documented as of this encounter Mental Status * Does person have difficulty concentrating/remembering/making decisions? Answer Entry Date Author No 12/25/2023 7:45 AM Jesse Bryan RN documented in this encounter Plan of Treatment Upcoming Encounters Date Type Department Care Team (Late st Contact Info) Description 03/19/2025 7:45 AM TYPING BOOKKEEPER Office Visit [facility] - Endocrinology [address] [facility], [address] [place] [phone] [place] [address] [address] [facility] [address] [place] [phone] 01/25/2026 1:30 PM TYPING BOOKKEEPER Video Visit [facility] Weight Management Services [address] [facility], [address] [place] [address] Pallavi Cunningham, ANTONY-PAINTING CONTRACTOR [address] [facility] [address] [place] [address] documented as of this encounter Visit Diagnoses Not on filedocumented in this encounter Care Teams Intelligence Operations Specialist Relationship Specialty Start Date End Date Maya Martínez MD [address] [facility] [address] [place] [address] PCP - General 05/12/21 documented as of this encounter
--- OUTSIDE RECORDS SUMMARY | 2025-02-17 12:55 | XMS_ITS | Clinical Summary ---
Author Organization [facility] Address [address] [place] [address] Care Team Providers Care Analytical Tech Name Role Phone Maya Martínez MD Primary Care Provider [phone]- [phone] Allergies Active Allergy Reactions Criticality Noted Date Comments Adhesive Tape-Silicones Itching,Rash Low 04/06/2022 Bee Sting Kit Anaphylaxis,Hives,It maki,Gavin h,Shortness of Breath/Wheezing,Swelling High 04/06/2022 Gluten Abdominal Pain,Diarrhea,Swelling Low 04/06/2022 Latex Hives,Swelling High 01/18/2018 Raspberry Anaphylaxis,Hives High 04/06/2022 Medications rosuvastatin (CRESTOR) 5 mg tablet Take 1 Tablet by mouth daily. 01/04/2021 Active triamterene-hydr oCHLOROthiazide (MAXZIDE 25) 37.5-25 mg tablet Take by mouth daily. Active cetirizine HCl (ZYRTEC ORAL) Take by mouth daily. Active albuterol sulfate HFA 90 mcg/actuation aerosol inhaler Take 2 Puffs by inhalation. 09/05/2022 Active FA/mv,Ca,iron,mi n/lycopene/lut (MULTIVITAL ORAL) Take 1 Tablet by mouth daily. Active CALCIUM ORAL Take 1 Tablet by mouth 3 times daily. Active Active Problems Patient Care Coordination No te Formatting of this note migh t be different from the original. Primary Care: Maya Martínez MD [place]: [place] [address] [address] Other: Dr. Lorie Patel MD Problem Noted Date Diagnosed Date Dense breast tissue on mammogram 04/13/2022 Vitamin D deficiency 04/06/2022 HTN (hypertension), benign 04/06/2022 RAFY (obstructive sleep apnea) 04/06/2022 Severe obesity (BMI 35.0-39.9) with comorbidity 04/06/2022 Abnormality of right breast on screening mammogr am 05/17/2021 Morbid obesity with body mass index of 40.0-49.9 05/17/2021 Breast pain, right 05/17/2021 Mastalgia 01/18/2018 Family history of colon cancer 01/18/2018 Encounters Date Type Department Care Team Description 02/10/2025 External Device Data STL ABSTRACTION Provider, Abstract 12/31/2024 External Device Data STL ABSTRACTION Provider, Abstract 12/31/2024 External Device Data STL ABSTRACTION Provider, Abstract from Last 3 Months Family History Medical History Relation Name Comments Colon Cancer Brother 1 Manan Gabby Other Brother 1 Manan Gabby Other Brother 2 Unknown Brother 3 Healthy Daughter 1 Healthy Daughter 2 COPD Father Jayden Peirre Diabetes Father Jayden Pierre Hypertension Father Jayden Pierre Other Father Jayden Pierre Breast Cancer Maternal Aunt 40's Diabetes Maternal Grandfather Stroke Maternal Grandfather Diabetes Maternal Grandmother Heart Disease Maternal Grandmother Kidney Disease Maternal Grandmother Anesthesia Problems Mother Loretta Pierre Asthma Mother Loretta Pierre COPD Mother Loretta Pierre Diabetes Mother Loretta Pierre Heart Disease Mother Loretta Pierre Hypertension Mother Loretta Pierre Inflammatory Bowel Disease Mother Loretta Nixon chicho Kidney Disease Mother Loretta Pierre Liver Disease Mother Loretta Pierre Other Mother Loretta Pierre Respiratory Disease Mother Loretta Pierre Seizures Mother Loretta Pierre Stroke Mother Loretta Pierre Thyroid Disease Mother Loretta Pierre Cancer Paternal Aunt 2 COPD Paternal Grandfather Diabetes Paternal Grandfather Heart Disease Paternal Grandfather Breast Cancer Paternal Grandmother Johanna Patel Ovarian Cancer Neg Hx Relation Name Status Comments Brother 1 Manan Nixonwell Alive Brother 2 Brother 3 Alive Daughter 1 Alive Daughter 2 Alive Father Jayden Pierre Maternal Aunt Maternal Grandfather Maternal Grandmother Mother Loretta Pierre Paternal Aunt 1 Alive Paternal Aunt 2 Paternal Grandfather Paternal Grandmother Johanna Patel Social History Tobacco Use Types Packs/Day Years Used Date Smoking Tobacco: Never Smokeless Tobacco: Never Tobacco Cessation:Counseling Given: No Alcohol Use Standard Drinks/Week Comments No 0 (1 standard drink = 0.6 oz pur e alcohol) rarely Feeling Safe Answer Date Recorded Within the last year, have y ou been afraid of your partner or ex-partner? No 04/17/2023 Within the last year, have y ou been humiliated or emotionally abused in other ways by your partner or ex-partner? No Within the last year, have y ou been kicked, hit, slapped, or otherwise physically hurt by your partner or ex-partner? No 04/17/2023 Within the last year, have y ou been raped or forced to have any kind of sexual activity by your partner or ex-partner? No 04/17/2023 Social Connections Answer Date Recorded In a typical week, how many times do you talk on the phone with family, friends, or neighbors? Three times a week 01/14/2019 How often do you get togethe r with friends or relatives? Once a week 01/14/2019 How often do you attend chur or mosque services? More than 4 times per year 01/14/2019 Do you belong to any clubs o r organizations such as evangelical groups, unions, fraternal or athletic groups, or school groups? No 01/14/2019 How often do you attend meet ings of the clubs or organizations you belong to? Never 01/14/2019 Are you , , di vorced, , never , or living with a partner? 01/14/2019 Financial Resource Strain Answer Date R ecorded How hard is it for you to pa y for the very basics like food, housing, medical care, and heating? Not hard at all 01/14/2019 Food Insecurity Answer Date Recorded Within the past 12 months, y ou worried that your food would run out before you got the money to buy more. Never true 01/15/20 19 Within the past 12 months, t he food you bought just didn't last and you didn't have money to get more. Never true 01/14/2019 Transportation Needs Answer Date Record ed In the past 12 months, has l ack of transportation kept you from medical appointments or from getting medications? No 01/03 In the past 12 months, has l ack of transportation kept you from meetings, work, or from getting things needed for daily living? No 01/14/2019 Comments No Sex and Gender Information Value Date Recorded Sex Assigned at Not on file Legal Sex Female 9:25 PM CDT Gender Identity Not on file Sexual Orientation Not on file Last Filed Vital Signs Vital Sign Reading Time Taken Comments Blood Pressure 106/74 07/22/2024 3:09 PM CDT Pulse 54 04/17/2023 9:11 AM RETAIL EVENT AND SALES ASSISTANT Temperature - - Respiratory Rate - - Oxygen Saturation 97% 04/06/2022 1:29 PM RETAIL EVENT AND SALES ASSISTANT Inhaled Oxygen Concentration - - Weight 74.2 kg (163 lb 9.6 oz) 07/22/2024 3:09 P M CDT Height 160 cm (5' 3) 07/22/2024 3:09 PM CDT Body Mass Index 28.98 07/22/2024 3:09 PM CDT Plan of Treatment Upcoming Encounters Date Type Department Care Team (Late st Contact Info) Description 07/31/2025 2:00 PM CDT Office Visit [facility] OBGYN [address] [facility] [address] [address] [address], Gerardo [address] [place] [address] [place] [address] [facility] [address] [facility] [address] [place] [address] Health Maintenance Due Date Last Done Comments Pre-Diabetes and Diabetes Screening 1969 HEPATITIS B VACCINES (1 of 3 - 19+ 3-dose series) 1988 FIT-DNA Q 3 years 2014 FIT/FOBT Q 1 year 2014 Flex Sig/CT Colonography Q 5 years 2014 ZOSTER VACCINE (1 of 2) 08/26/2019 INFLUENZA VACCINE (#1) 2024 BREAST CANCER SCREENING 04/25/2025 04/25/19, 04/17/2023, 10/12/2022, Additional history exists COLORECTAL SCREENING 04/03/2026 04/03/2016 Colorectal Cancer Screening 04/03/2026 PAP SMEAR 07/23/2027 07/22/2024, 12/0 04/2021, 01/16/2020, Additional history exists DTAP/TDAP/TD VACCINES (2 - T d or Tdap) 12/27/2027 12/26/2017 CERVICAL CANCER SCREENING 07/22/2029 HPV/Cotest (21-29) 07/22/2029 07/22/2024, 02/03/2022 HPV/Cotest (30-65) 07/22/2029 07/22/2024, 02/03/2022 Procedures Procedure Name Priority Date/Time Associated Diagnosis Comments CERV/VAG CYTO AGE BASED SCREEN PAP Routine 07/22/2024 3:33 PM CDT Screening for cervical cancer Screening for HPV (human papillomavirus) MAMMO 3D SOPHIE SCREEN BILAT W OR WO CAD Routine 04/25/2024 3:48 PM RETAIL EVENT AND SALES ASSISTANT Encounter for screening for malignant neoplasm of breast, unspecified screening modality from Last 3 Months or Most Recently Relevant to Health Maintenance Results * CERV/VAG CYTO AGE BASED SCREEN PAP (07/22/2024 3:33 PM CDT) COMMENT (PAP): [facility] [place] Comment: This order for age-based cervical cancer and STI screening follows ACOG guidelines(PB 168, 140, ZSW394). See individual assays for performing site location. CLINICAL INFORMATION [facility] Comment:RELEASE TO PATIENT : IMMEDIATE LAST MENSTRUAL PERIOD [facility] [place] Comment:NONE GIVEN PREV PAP: [facility] [place] Comment:NONE GIVEN PREV BX: [facility] [place] Comment:NONE GIVEN SOURCE [facility] Comment:Endocervix [place]QUAC[facility]: [place] Comment: Satisfactory for evaluation. Endocervical/transformation zone component absent. Age and/or menstrual status not provided PAP INTERP [facility] [place] Comment: Cytology Results: Negative for intraepithelial lesion or malignancy. COMMENT (PAP TEST) Q uest [facility] [place] Comment: This Pap test has been evaluated with computer assisted technology. MEDICAL FACILITIES SECTION DIRECTOR: Qu gisela [facility] [place] Comment: AMW, CT(ASCP) CT screening location: [place] [address] [place] [address] EXPLANATORY NOTE Que [facility] Comment: EXPLANATORY NOTE: The Pap is a screening test for cervical cancer. It is not a diagnostic test and is subject to false negative and false positive results. It is most reliable when a satisfactory sample, regularly obtained, is submitted with relevant clinical findings and history, and when the Pap result is evaluated along with historic and current clinical information. HPV E6/E7 Not Detected Not Detected [facility] Comment: Methodology: [employer] Tractor Operator-Mediated Amplification This assay detects E6/E7 viral messenger RNA (mRNA) from 14 high-risk HPV types (16,18,31,33,35,39,45,51,52,56,58,59,66,68). Cervical sources are required for HPV testing. If a vaginal source from a patient who has had a total hysterectomy with removal of cervix was submitted, please contact the testing laboratory for alternative testing options. For additional information, please refer to http://education.[employer]/faq/JYY348p4 (This link if provided for information/ educational purposes only.) Test Performed at: [address] [address] Gopal MENDOZA Genital SWAB OF ENDOCERVIX / Unknown 07/22/2024 3:33 PM CDT 07/23/2024 3:58 PM CDT Nazario Orta MD PATHOLOGY/CYTOLOGY ORDERABLES Final Result [facility] [phone] [address] * MAMMO 3D SOPHIE SCREEN BILAT W OR WO CAD (04/25/2024 3:48 PM RETAIL EVENT AND SALES ASSISTANT) Anatomical Region Laterality Modality Breast Bilateral Mammography 04/25/2024 3:48 PM RETAIL EVENT AND SALES ASSISTANT Impressions 04/25/2024 4:08 PM RETAIL EVENT AND SALES ASSISTANT IMPRESSION: 1. BI-RADS Category 2. benign findings. Annual screening mammography recommended. A) A negative report should not delay a biopsy if a dominant or clinically suspicious mass is present. B) Adenosis and dense breasts may obscure an underlying neoplasm. C) Study interpreted with computer-aided detection. MQSA BI-RADS Categories: Category 0 - needs additional imaging evaluation. Category 1 - negative. Category 2 - benign findings. Category 3 - probably benign findings, but short interval followup is recommended. Category 4 - suspicious abnormality-biopsy should be considered. Category 5 - highly suggestive of malignancy and appropriate action should be taken. Narrative 04/25/2024 4:08 PM RETAIL EVENT AND SALES ASSISTANT EXAMINATION: MAMMO 3D SOPHIE SCREEN BILAT W OR WO CAD WITH 3-D TOMOSYNTHESIS AND COMPUTER-AIDED DETECTION (CAD) DATE: 04/25/2024 3:48 PM COMPARISON STUDIES: April 17, 2023, October 12, 2022, April 13, 2022. CLINICAL HISTORY: Screening, no complaints. Family history of breast CA, grandmother and aunt. Encounter for screening for malignant neoplasm of breast, unspecified screening modality. BREAST COMPOSITION: Scattered residual fibroglandular parenchyma. FINDINGS: Bilateral CC, MLO, 2-D and 3-D acquisitions. The breast parenchyma is similar in appearance and distribution to the previous exams. No evidence of dominant mass, architectural distortion, skin thickening, nipple retraction or suspicious clusters of microcalcifications. Benign calcifications redemonstrated. Nazario Orta MD MAMMO ORDERABLES Final Result from Last 3 Months or Most Recently Relevant to Health Maintenance [place] [address] [address] [place] [address] CHOICE [id number] [facility] CHOICE [id number] Care Teams Analytical Tech Relationship Specialty Start Date End Date Maya Martínez MD PCP - General Family Practice 01/18/18
--- OUTSIDE RECORDS SUMMARY | 2025-02-17 12:55 | XMS_ITS | Clinical Summary ---
Author Organization [facility] Address [address] [place] [address] Care Team Providers Care Security Representative Name Role Phone Maya Martínez MD Primary Care Provider +1- [phone] Medications No known medications Active Problems Problem Noted Date Diagnosed Date S/P shoulder surgery 02/23/2023 Adhesive capsulitis of right shoulder 11/30/2022 Social History Tobacco Use Types Packs/Day Years Used Date Smoking Tobacco: Never Assessed Comments Unknown Sex and Gender Information Value Date Recorded Sex Assigned at Not on file Legal Sex Female 4:07 PM CDT Gender Identity Not on file Sexual Orientation Not on file Plan of Treatment Health Maintenance Due Date Last Done Comments Cervical Cancer Screening Pa p Smear (Age 30 to 64) Every 3 Years 1969 Colorectal Cancer Screening Colonoscopy (10 Years) 1969 Annual Physical 1972 Hepatitis C 08/26/1987 DTaP, Tdap and Td Vaccines ( 1 - Tdap) 1988 Hepatitis B Vaccines (1 of 3 - 19+ 3-dose series) 1988 Cervical Cancer Screening Pa p with HPV Testing (Age 30 to 64) Every 5 Years 08/26/1999 Cervical Cancer Screening wi th HPV 08/26/1999 Mammogram Screening 2009 Pneumococcal Vaccine: 50+ Years (1 of 1 - PCV) 08/26/2019 Zoster Vaccines (1 of 2) 08/26/2019 COVID-19 Vaccine ( - 2024-2 6 season) 2024 06/08/2020, 05/16/2020 Influenza Adult (#1) 2024 Hepatitis A Vaccines Aged Out No long er eligible based on patient's age to complete this topic Meningococcal B Vaccine Aged Out No l onger eligible based on patient's age to complete this topic Meningococcal Vaccine Aged Out No adryan donny eligible based on patient's age to complete this topic RSV Immunizations Under 20 Months Aged Out No longer eligible b ased on patient's age to complete this topic Insurance [place] [id number] Care Teams Security Representative Relationship Specialty Start Date End Date Maya Martínez MD [address] [facility] [address] [place] [address] PCP - General FAMILY PRACTICE 11/22/22
--- OUTSIDE RECORDS SUMMARY | 2025-02-17 12:55 | XMS_ITS | Encounter Summary ---
Author Organization [facility] Address [address] [place] [address] Care Team Providers Care Telegraph And Teletype Operator Name Role Phone Maya Martínez MD Primary Care Provider + Encounter Details Date Type Department Care Team (Late st Contact Info) Description 02/17/2025 Orders Only [facility] Weight Management Services [address] [facility] [address] [place] [address] Pallavi Cunningham, INSPECTOR CIRCUITRY NEGATIVE-APPLICATION SECURITY DEVELOPER [address] [facility] [address] [place] [address] Elevated LFTs Social History Tobacco Use Types Packs/Day Years [...] and heating? Not hard at all 12/25/2023 [facility] [place] of Occupat ional Health - Occupational Stress [...] any time in the past 12 m [facility], were you homeless or living in a fpc (including now)? No 12/25/2023 Comments No Sex [...] st Contact Info) Description 03/19/2025 7:45 AM PUBLIC BATH ATTENDANT Office Visit [facility] - Endocrinology [address] [facility], [address] [place] [phone] [place] [address] [address] [facility] [address] [place] [phone] 01/25/2026 1:30 PM PUBLIC BATH ATTENDANT Video Visit [facility] Weight Management Services [address] [facility], [address] [place] [address] Pallavi Cunningham, ANTONY-APPLICATION SECURITY DEVELOPER [address] [facility] [address] [place] [address] Scheduled Orders Name Type Priority Associated Diagnoses Orde r Schedule COMPREHENSIVE METABOLIC PANEL Lab Routine Elevated LFTs Ordered: 02/17/2025 documented as of this encounter Visit Diagnoses Diagnosis Elevated LFTs- Primary Other abnormal blood chemistry documented in this encounter Care Teams Telegraph And Teletype Operator Relationship Specialty Start Date End Date Maya Martínez MD [address] [facility] [address] [place] [address] PCP - General 05/12/21 documented as of this encounter
== END 2025-02-17 10:47 | disposition home or self-care (01) ==
PROVIDERS: PCP Family Medicine; Visit Provider Physician Assistant
DX: M25.512 Pain in left shoulder (principal)
CPT/HCPCS: 73030